=== PATIENT | male | born 1990 | race Caucasian/White ===

== ENCOUNTER 2022-03-17 01:20 | Observation (INO) ==
[2022-03-17] MEDS ORDERED: Melatonin 3 MG TABLET PO PRN ×2 (01:51→12:23)
[2022-03-17] MEDS ORDERED: Ondansetron 4 MG/2 ML VIAL IVP PRN ×3 (01:51→12:23)
[2022-03-17] MEDS ORDERED: Naloxone 0.4 MG/ML INJ IVP PRN ×2 (01:51→12:23)
[2022-03-17] MEDS ORDERED: 0.9 % Sodium Chloride 1,000 ML IVC SCH (02:00)
[2022-03-17] MEDS ORDERED: Ketorolac 30 MG/ML VIAL IVP PRN ×2 (03:15→12:23)
[2022-03-17 03:17] LABS: Hematocrit 40.2 % (37.5-50.1); Hemoglobin 13.4 g/dL (12.9-16.9); Mean Corpuscular HGB Conc 33.3 g/dL (31.6-35.5); Mean Corpuscular Hemoglobin 28.7 pg (28.0-33.3); Mean Corpuscular Volume 86.1 fL (83.0-100.0); Mean Platelet Volume 11.4 fL (9.4-12.4); Platelet Count 169 K/mcL (140-400); Red Blood Count 4.67 M/mcL (4.19-5.50); Red Cell Distribution Width 14.8 % (11.5-14.5)
[2022-03-17 03:25] LABS: BUN/Creatinine Ratio 18 (6-26); Blood Urea Nitrogen 12 mg/dL (6-20); Calcium 8.6 mg/dL (8.6-10.3); Carbon Dioxide 23 mEq/L (23-29); Chloride 105 mEq/L (98-107); Glucose 103 mg/dL (70-105); Osmolality,Calculated 280 (280-300); Potassium 3.6 mEq/L (3.5-5.1); Sodium 135 mEq/L (136-145); eGFR For African Americans > 60 (> 60); eGFR For Non-African Americans > 60 (> 60)
[2022-03-17] MEDS ORDERED: Vancomycin 1,750 MG in 0.9 % Sodium Chloride 250 ML IVPB SCH (04:00)
[2022-03-17] MEDS ORDERED: Piperacillin/Tazobactam 3.375 GM in 0.9 % Sodium Chloride Mini Bag 100 ML IVPB SCH (08:00)
[2022-03-17] MEDS ORDERED: Lidocaine -MPF 4% 5 ML AMPUL ONE (08:17)
[2022-03-17] MEDS ORDERED: *HR* Propofol 200 MG/20 ML VIAL IVP ONE (08:17)
[2022-03-17] MEDS ORDERED: *HR* FentaNYL (PF) 100 MCG/2 ML VIAL ONE ×2 (08:17→10:15)
[2022-03-17] MEDS ORDERED: Ondansetron 4 MG/2 ML VIAL ONE (08:17)
[2022-03-17] MEDS ORDERED: *HR* Succinylcholine 200 MG/10 ML VIAL IVP ONE (08:17)
[2022-03-17] MEDS ORDERED: *HR* Midazolam HCl 2 MG/2 ML VIAL ONE (08:17)
[2022-03-17] MEDS ORDERED: *HR* HYDROmorphone PF 0.5 MG/0.5 ML SYRINGE IVP PRN (08:57)
[2022-03-17] MEDS ORDERED: Vancomycin 1,250 MG/262.5 ML IV.SOLN IVPB SCH (09:00)
[2022-03-17] MEDS ORDERED: *HR* Rocuronium Bromide 50 MG/5 ML VIAL ONE (10:13)
[2022-03-17] MEDS ORDERED: *HR* Magnesium Sulfate 1 GM/2 ML VIAL ONE (10:25)
[2022-03-17] MEDS ORDERED: Ketorolac 30 MG/ML VIAL ONE (10:31)
[2022-03-17] MEDS ORDERED: Ketorolac 30 MG/ML VIAL IVP ONE (10:34)
[2022-03-17] MEDS ORDERED: Vancomycin 1,750 MG/517.5 ML IV.SOLN IVPB SCH (12:00)
[2022-03-17] MEDS ORDERED: *HR* OxyCODONE/APAP 5/325 TABLET PO PRN (12:23)
[2022-03-17] MEDS: Vancomycin 1,750 MG/517.5 ML IV.SOLN IVPB SCH (13:26)
[2022-03-17] MEDS: Piperacillin/Tazobactam 3.375 GM in 0.9 % Sodium Chloride Mini Bag 100 ML IVPB SCH (16:58)
[2022-03-17] MEDS: Nicotine 21 MG PATCH.TD24 TD SCH (17:00)
[2022-03-18] MEDS: Piperacillin/Tazobactam 3.375 GM in 0.9 % Sodium Chloride Mini Bag 100 ML IVPB SCH ×2 (00:11→07:57)
[2022-03-18] MEDS: Vancomycin 1,750 MG/517.5 ML IV.SOLN IVPB SCH (00:56)
[2022-03-18 03:51] VITALS: O2SAT 97
[2022-03-18 06:30] LABS: Basophils % 0.3 %; Eosinophils # 0.3 K/mcL (0.0-0.6); Eosinophils % 1.7 %; Hematocrit 36.9 % (37.5-50.1); Immature Granulocytes % 0.5 % (0-4); Lymphocytes # 1.9 K/mcL (0.6-4.6); Lymphocytes % 12.5 %; Mean Corpuscular HGB Conc 31.7 g/dL (31.6-35.5); Mean Corpuscular Volume 88.3 fL (83.0-100.0); Monocytes % 6.4 %; Neutrophils # 12.1 K/mcL (1.6-8.9); Platelet Count 170 K/mcL (140-400); Red Blood Count 4.18 M/mcL (4.19-5.50); Red Cell Distribution Width 15.3 % (11.5-14.5); Segmented Neutrophils % 78.6 %; White Blood Count 15.4 K/mcL (4.3-11.1)
[2022-03-18 06:31] LABS: Hemoglobin 11.7 g/dL (12.9-16.9)
[2022-03-18 06:41] LABS: BUN/Creatinine Ratio 11 (6-26); Blood Urea Nitrogen 8 mg/dL (6-20); Calcium 8.4 mg/dL (8.6-10.3); Carbon Dioxide 26 mEq/L (23-29); Chloride 105 mEq/L (98-107); Glucose 102 mg/dL (70-105); Osmolality,Calculated 281 (280-300); Potassium 3.9 mEq/L (3.5-5.1); Sodium 136 mEq/L (136-145); eGFR For African Americans > 60 (> 60); eGFR For Non-African Americans > 60 (> 60)
[2022-03-18 07:28] VITALS: BP 126/80; PULSE 74; TEMP 97.6
[2022-03-18] MEDS: Nicotine 21 MG PATCH.TD24 TD SCH (07:57)
== END 2022-03-18 11:50 | disposition home or self-care (01) ==
LOC: 3ANU → SUATTDRO 01:20
PROVIDERS: ADMIT Internal Medicine; ATTEND Family Medicine